=== PATIENT | female | born 1975 | race Caucasian/White ===

== ENCOUNTER 2017-06-01 00:12 | Observation (INO) | payer MEDICAID ==
[~2017-06-01] VITALS: Ht 162.6 cm; Wt 79.4 kg
[~2017-06-01 00:12] MED LIST: ACETTAB85 PO; CARI-277 PO; CITA10TA59 PO; CLON2TAB3 PO; DIC10C PO; GABA-497 PO; HYDR-2601 PO; MULTCAP45 PO; OMEP20CA74 PO; Pantoprazole Sodium Sesquihydr PO; SUCR1TAB38 PO; VAREPAK PO; ZOLP-158 PO
[2017-06-01 01:23] LABS: Basophils # (auto) 0 uL; Basophils % (auto) 0.4 % (0.0-2.0); CONDITION Y; Eosinophils # (auto) 0.2 uL; Eosinophils % (auto) 2.4 % (0.0-7.0); Hematocrit 41.2 % (36.0-46.0); Hemoglobin 13.9 g/dL (12.2-16.2); Lymphocytes # (auto) 1.9 uL; Mean Corpuscular Hemoglobin 31.4 pg (28.0-32.0); Mean Corpuscular Hgb Conc. 33.8 g/dL (32.0-36.0); Mean Corpuscular Volume 92.7 fL (80.0-100.0); Mean Platelet Volume 9.3 fL (7.4-10.4); Monocytes # (auto) 0.7 uL; Monocytes % (auto) 7.1 % (0.0-12.0); Neutrophils # (auto) 7.1 uL; Neutrophils % (auto) 71.1 % (37.0-80.0); Platelet Count (auto) 265 10^3/uL (140-450); Red Cell Distribution Width 12.9 % (11.6-16.0); White Blood Cell 10.1 10^3/uL (4.4-10.8)
[2017-06-01 01:41] LABS: INR 0.95 (0.9-1.15); Partial Thromboplastin Time 27.5 sec (22.64-33.71); Prothrombin Time 10.4 sec (9.37-12.3)
[2017-06-01 01:45] LABS: Albumin 3.9 g/dL (3.4-5.0); BUN/Creatinine Ratio 18.9; Calcium 8.3 mg/dL (8.5-10.1); Potassium 3.4 mmol/L (3.5-5.1)
[2017-06-01 01:46] LABS: Bilirubin, Total 0.4 mg/dL (0.2-1.0); Total Protein 7.5 g/dL (6.4-8.2)
[2017-06-01] MEDS ORDERED: SODIUM CHLORIDE 0.9% 1,000 ML IV ONE (08:05)
[2017-06-01] MEDS ORDERED: KETOROLAC TROMETH 30 MG/ML 1ML VIAL IV ONE (08:15)
[2017-06-01 10:17] LABS: Urine RBC None Seen /hpf (0 - 4)
[2017-06-01 10:27] LABS: Urine Bilirubin Negative (Negative); Urine Blood Negative /uL (Negative); Urine Color Yellow (Yellow); Urine Glucose Normal (Normal); Urine Ketone Negative (Negative); Urine Mucus FEW (None Seen); Urine Nitrite POSITIVE (Negative); Urine Squamous Epithelial Cell FEW /hpf (<5); Urine Urobilinogen Normal (Negative)
[2017-06-01 11:50] VITALS: BP 115/86
== END 2017-06-01 12:06 | disposition home or self-care (01) | DRG 53 ==
LOC: ER 00:12 → OVERFLOW 08:07 → ER 12:06
PROVIDERS: ADMIT Emergency Medicine; ATTEND Emergency Medicine
DX: G40.909 Epilepsy, unspecified, not intractable, without status epilepticus (principal); I10 Essential (primary) hypertension; M43.12 Spondylolisthesis, cervical region; F41.9 Anxiety disorder, unspecified; F17.210 Nicotine dependence, cigarettes, uncomplicated; F32.9 Major depressive disorder, single episode, unspecified; Z90.710 Acquired absence of both cervix and uterus; Z87.442 Personal history of urinary calculi; Z86.73 Personal history of transient ischemic attack (TIA), and cerebral infarction without residual deficits; Z82.49 Family history of ischemic heart disease and other diseases of the circulatory system
CPT/HCPCS: 36415; 70450; 72040; 80053; 81001; 85025; 85610; 85730; 96361; 96374; 99285; G0378; J1885; J7030

== ENCOUNTER 2017-11-12 21:43 | Emergency (ER) | payer MEDICAID ==
[~2017-11-12] VITALS: Ht 162.6 cm; Wt 86.2 kg
[~2017-11-12 21:43] MED LIST changes: -GABA-497 PO; +GABA300C10 PO
[2017-11-13 00:59] LABS: Albumin 3.6 g/dL (3.4-5.0); BUN/Creatinine Ratio 20.3; Calcium 8.2 mg/dL (8.5-10.1); Magnesium 1.9 mg/dL (1.6-2.6); Potassium 4.2 mmol/L (3.5-5.1)
[2017-11-13 01:01] LABS: Bilirubin, Total 0.1 mg/dL (0.2-1.0)
[2017-11-13 04:00] VITALS: BP 148/98
== END 2017-11-13 07:37 | disposition left against medical advice (07) ==
LOC: ER 21:43
DX: R07.9 Chest pain, unspecified (principal); R03.0 Elevated blood-pressure reading, without diagnosis of hypertension; Z53.21 Procedure and treatment not carried out due to patient leaving prior to being seen by health care provider
CPT/HCPCS: 36415; 80053; 83735; 84484; 93005

== ENCOUNTER 2018-09-18 12:29 | Emergency (ER) | payer MEDICAID ==
[~2018-09-18] VITALS: Ht 162.6 cm; Wt 90.7 kg
[~2018-09-18 12:29] MED LIST changes: +ACET-1603 PO; -ACETTAB85 PO; -CLON2TAB3 PO; +CLON2TAB6 PO
[2018-09-18] MEDS ORDERED: HYDROcodone-ACET 10/325MG TAB PO ONE (13:15)
[2018-09-18 13:34] LABS: Urine Bacteria FEW /hpf (None Seen); Urine Blood Negative /uL (Negative); Urine Mucus FEW (None Seen); Urine WBC <1 /hpf (0 - 5)
[2018-09-18 13:51] VITALS: BP 153/92
[2018-09-18 13:53] LABS: Albumin 3.9 g/dL (3.4-5.0); Calcium 8.5 mg/dL (8.5-10.1); Potassium 4.2 mmol/L (3.5-5.1)
[2018-09-18 13:58] LABS: BUN/Creatinine Ratio 16.9; Bilirubin, Total 0.3 mg/dL (0.2-1.0); Total Protein 7.3 g/dL (6.4-8.2)
[2018-09-18] MEDS ORDERED: ONDANSETRON ODT 4 MG TAB PO ONE (14:45)
== END 2018-09-18 14:53 | disposition home or self-care (01) ==
LOC: ER 12:29
DX: R51 Headache (principal); I10 Essential (primary) hypertension; F12.10 Cannabis abuse, uncomplicated; Z90.710 Acquired absence of both cervix and uterus; Z90.49 Acquired absence of other specified parts of digestive tract
CPT/HCPCS: 36415; 70450; 80053; 81001; 99285; Q0162

== ENCOUNTER 2019-05-16 13:26 | Emergency (ER) | payer MEDICAID ==
[~2019-05-16] VITALS: Ht 162.6 cm; Wt 97.5 kg
[2019-05-16 13:43] LABS: Urine WBC None Seen /hpf (0 - 5)
[2019-05-16 14:12] LABS: Urine Bacteria NONE SEEN /hpf (None Seen); Urine Blood Negative /uL (Negative); Urine Specific Gravity 1.002 (1.001-1.035)
[2019-05-16 15:34] LABS: Basophils # (auto) 0 uL; Basophils % (auto) 0.5 % (0.0-2.0); Eosinophils # (auto) 0.1 uL; Eosinophils % (auto) 1.7 % (0.0-7.0); Hematocrit 43.9 % (36.0-46.0); Hemoglobin 14.8 g/dL (12.2-16.2); Lymphocytes % (auto) 23.5 % (10.0-50.0); Mean Corpuscular Hemoglobin 32.1 pg (28.0-32.0); Mean Corpuscular Hgb Conc. 33.7 g/dL (32.0-36.0); Mean Corpuscular Volume 95.1 fL (80.0-100.0); Monocytes # (auto) 0.5 uL; Monocytes % (auto) 6.5 % (0.0-12.0); Neutrophils # (auto) 5.7 uL; Neutrophils % (auto) 67.8 % (37.0-80.0); Nucleated Red Blood Cells % 0.1 %; Platelet Count (auto) 190 10^3/uL (140-450); Red Blood Cells 4.61 10^6/uL (4.0-5.20); Red Cell Distribution Width 12.4 % (11.8-14.3); White Blood Cell 8.4 10^3/uL (4.4-10.8)
[2019-05-16 15:57] LABS: Albumin 4.2 g/dL (3.4-5.0); BUN/Creatinine Ratio 12.5; Bilirubin, Total 0.4 mg/dL (0.2-1.0); Calcium 9.3 mg/dL (8.5-10.1); Total Protein 7.4 g/dL (6.4-8.2)
[2019-05-16 23:10] VITALS: BP 149/98
[2019-05-16] MEDS: KETOROLAC TROMETH 60MG/2ML VIAL IM ONE (23:27)
[2019-05-16] MEDS: LACTULOSE 20Gm/30ML SOLN PO ONE (23:28)
[2019-05-16] MEDS: ONDANSETRON ODT 4 MG TAB PO ONE (23:28)
== END 2019-05-16 23:36 | disposition home or self-care (01) ==
LOC: ER 13:26
DX: K59.00 Constipation, unspecified (principal); R11.2 Nausea with vomiting, unspecified; I10 Essential (primary) hypertension; F12.10 Cannabis abuse, uncomplicated; Z90.49 Acquired absence of other specified parts of digestive tract; Z90.710 Acquired absence of both cervix and uterus; Z88.6 Allergy status to analgesic agent; Z79.899 Other long term (current) drug therapy
CPT/HCPCS: 36415; 74176; 80053; 81001; 82150; 83690; 85025; 96372; 99284; J1885; Q0162

== ENCOUNTER 2020-03-20 13:21 | Inpatient (IN) | payer MEDICAID ==
[~2020-03-20] VITALS: Ht 162.6 cm; Wt 98.2 kg
[~2020-03-20 13:21] MED LIST changes: +CLON-707 PO; -CLON2TAB6 PO; -DIC10C PO; +DICY10CA PO
[2020-03-20] MEDS ORDERED: ASPirin 81 mg TAB PO ONE (13:45)
[2020-03-20] MEDS ORDERED: cloNIDine HCL 0.1 MG TAB PO ONE (13:45)
[2020-03-20 14:19] LABS: Basophils # (auto) 0 10 ^3/uL (0-0.2); Basophils % (auto) 0.4 % (0.0-2.0); Eosinophils # (auto) 0.1 10 ^3/uL (0-0.8); Eosinophils % (auto) 1.9 % (0.0-7.0); Hematocrit 39.7 % (36.0-46.0); Hemoglobin 13.2 g/dL (12.2-16.2); Lymphocytes # (auto) 1.7 10 ^3/uL (0.4-5.4); Lymphocytes % (auto) 25.7 % (10.0-50.0); Mean Corpuscular Hemoglobin 31.3 pg (28.0-32.0); Mean Corpuscular Hgb Conc. 33.2 g/dL (32.0-36.0); Mean Corpuscular Volume 94.4 fL (80.0-100.0); Monocytes # (auto) 0.4 10 ^3/uL (0-1.3); Monocytes % (auto) 6.1 % (0.0-12.0); Neutrophils # (auto) 4.4 10 ^3/uL (1.6-8.6); Neutrophils % (auto) 65.9 % (37.0-80.0); Platelet Count (auto) 167 10^3/uL (140-450); Red Cell Distribution Width 13.1 % (11.8-14.3); White Blood Cell 6.7 10^3/uL (4.4-10.8)
[2020-03-20 14:39] LABS: Alanine Aminotransferase 23 U/L (13-56); Albumin 3.4 g/dL (3.4-5.0); Anion Gap 8 (5-15); Aspartate Aminotransferase 16 U/L (15-37); BUN/Creatinine Ratio 21.8; Blood Urea Nitrogen 12 mg/dL (7-18); Calcium 8.3 mg/dL (8.5-10.1); Carbon Dioxide 22 mmol/L (21-32); Chloride 111 mmol/L (98-107); GFR African American 154 mL/min; GFR Non-African American 127 mL/min; Glucose 102 mg/dL (74-106); Magnesium 1.9 mg/dL (1.6-2.6); Potassium 3.3 mmol/L (3.5-5.1); Sodium 141 mmol/L (136-145)
[2020-03-20 14:45] LABS: Alkaline Phosphatase 46 U/L (45-117); Bilirubin, Total 0.2 mg/dL (0.2-1.0); Total Protein 6.6 g/dL (6.4-8.2)
[2020-03-20] MEDS ORDERED: SODIUM CHLORIDE 0.9% 1,000 ML IV SCH (14:59)
[2020-03-20] MEDS ORDERED: MORPHINE SULFATE 4 MG/ML SYR/VIAL IV PRN (15:00)
[2020-03-20] MEDS ORDERED: LORazepam 0.5 MG TAB PO PRN (15:00)
[2020-03-20] MEDS ORDERED: ACETAMINOPHEN 325 MG TAB PO PRN (15:00)
[2020-03-20] MEDS ORDERED: NITROGLYCERIN 0.4 MG SL TAB SL PRN ×2 (15:00)
[2020-03-20] MEDS ORDERED: ALUM & MAG HYDROX-SIMETH LIQ(MAALOX) 30 ML PO ONE (15:00)
[2020-03-20] MEDS ORDERED: ZOLPIDEM TARTRATE 5 MG TAB PO PRN (15:00)
[2020-03-20] MEDS ORDERED: POTASSIUM CHL 20 Meq TABLET PO ONE (15:30)
[2020-03-20] MEDS: ONDANSETRON HCL 4 MG/2 ML VIAL IV PRN (15:41)
[2020-03-20] MEDS: MORPHINE SULF INJ 2 MG/ML SYRINGE 1ML IV PRN ×2 (15:41→21:18)
[2020-03-20] MEDS ORDERED: HYDROcodone-ACET 7.5/325MG TAB PO PRN (15:45)
[2020-03-20] MEDS ORDERED: MAGNESIUM OXIDE 400 MG TAB PO ONE (16:00)
[2020-03-20] MEDS: SUCRALFATE 1 GM TAB PO SCH ×2 (18:24→22:34)
[2020-03-20 19:37] VITALS: BP 123/78
[2020-03-20 21:31] VITALS: BP 109/69
[2020-03-20] MEDS ORDERED: ATORVASTATIN 20 MG TAB PO SCH (22:00)
[2020-03-20] MEDS ORDERED: HYDROcodone-ACET 7.5/325MG TAB PO SCH (22:00)
[2020-03-20] MEDS ORDERED: CARISOPRODOL 350 MG TAB PO SCH (22:00)
[2020-03-20] MEDS: METOPROLOL TARTRATE 25 MG TAB PO SCH (22:33)
[2020-03-20] MEDS: PANTOPRAZOLE 40 MG TAB PO SCH (22:34)
[2020-03-20] MEDS: GABAPENTIN 300 MG CAP PO SCH (22:34)
[2020-03-20] MEDS: DICYCLOMINE HCL 10 MG CAP PO SCH (22:34)
[2020-03-20] MEDS ORDERED: ALBUTEROL SULF 2.5 MG/0.5ML(0.5%) NEB SOLN NEB PRN (22:45)
[2020-03-20] MEDS ORDERED: CALCIUM W/VIT D (600MG/400IU) TAB PO ONE (23:15)
[2020-03-21] MEDS ORDERED: BECL80AE11 IN (01:57)
[2020-03-21] MEDS ORDERED: CHOL20007 OR (01:57)
[2020-03-21] MEDS ORDERED: ONDA-144 PO (01:57)
[2020-03-21] MEDS ORDERED: TOPI100T29 PO (01:57)
[2020-03-21] MEDS ORDERED: CYCL1TAB18 PO (01:57)
[2020-03-21] MEDS ORDERED: PANT40TA2 PO (01:58)
[2020-03-21] MEDS: MORPHINE SULF INJ 2 MG/ML SYRINGE 1ML IV PRN (03:54)
[2020-03-21] MEDS: ONDANSETRON HCL 4 MG/2 ML VIAL IV PRN (03:54)
[2020-03-21 05:00] VITALS: BP 106/73
[2020-03-21] MEDS: DICYCLOMINE HCL 10 MG CAP PO SCH (05:47)
[2020-03-21] MEDS: SUCRALFATE 1 GM TAB PO SCH ×2 (05:47→11:58)
[2020-03-21 05:53] LABS: Basophils # (auto) 0 10 ^3/uL (0-0.2); Basophils % (auto) 0.4 % (0.0-2.0); Eosinophils # (auto) 0.1 10 ^3/uL (0-0.8); Eosinophils % (auto) 2.4 % (0.0-7.0); Hematocrit 38.2 % (36.0-46.0); Hemoglobin 13.2 g/dL (12.2-16.2); Lymphocytes # (auto) 1.6 10 ^3/uL (0.4-5.4); Lymphocytes % (auto) 28.4 % (10.0-50.0); Mean Corpuscular Hemoglobin 32.7 pg (28.0-32.0); Mean Corpuscular Hgb Conc. 34.6 g/dL (32.0-36.0); Mean Corpuscular Volume 94.6 fL (80.0-100.0); Monocytes # (auto) 0.4 10 ^3/uL (0-1.3); Monocytes % (auto) 7.3 % (0.0-12.0); Neutrophils # (auto) 3.5 10 ^3/uL (1.6-8.6); Neutrophils % (auto) 61.5 % (37.0-80.0); Nucleated Red Blood Cells % 0.1 %; Platelet Count (auto) 153 10^3/uL (140-450); Red Blood Cells 4.04 10^6/uL (4.0-5.20); Red Cell Distribution Width 12.6 % (11.8-14.3); White Blood Cell 5.6 10^3/uL (4.4-10.8)
[2020-03-21 06:05] LABS: Partial Thromboplastin Time 26.1 sec (23.64-32.05)
[2020-03-21 06:09] LABS: Potassium 4.1 mmol/L (3.5-5.1)
[2020-03-21 06:14] LABS: Albumin 3.2 g/dL (3.4-5.0); BUN/Creatinine Ratio 18.2; Bilirubin, Total 0.4 mg/dL (0.2-1.0); Calcium 8.8 mg/dL (8.5-10.1); Magnesium 2.3 mg/dL (1.6-2.6); Phosphorus 3.2 mg/dL (2.5-4.90)
[2020-03-21] MEDS ORDERED: CALCIUM W/VIT D (600MG/400IU) TAB PO SCH (08:00)
[2020-03-21] MEDS ORDERED: ADENOSINE 82 MG in GIVE UN-DILUTED 0 ML IV STA (08:18)
[2020-03-21 09:00] VITALS: BP 106/75
[2020-03-21] MEDS ORDERED: LISINOPRIL 10 MG TAB PO SCH (10:00)
[2020-03-21] MEDS: METOPROLOL TARTRATE 25 MG TAB PO SCH (10:00)
[2020-03-21] MEDS ORDERED: ASPirin 81 mg TAB PO SCH (10:00)
[2020-03-21] MEDS ORDERED: DOCUSATE SOD 100 MG CAP PO SCH (10:00)
[2020-03-21] MEDS ORDERED: NICOTINE 14 MG/24HR TOPICAL PATCH TD SCH (10:00)
[2020-03-21] MEDS ORDERED: ENOXAPARIN SOD 60 MG/0.6 ML SYRINGE SC SCH (10:00)
[2020-03-21] MEDS: GABAPENTIN 300 MG CAP PO SCH (10:26)
[2020-03-21] MEDS: PANTOPRAZOLE 40 MG TAB PO SCH (10:27)
[2020-03-21] MEDS ORDERED: KETOROLAC TROMETH 30 MG/ML 1ML VIAL IV ONE (11:45)
[2020-03-21] MEDS ORDERED: diphenhdrAMINE HCL 25 MG CAP PO PRN (12:30)
[2020-03-21 14:00] VITALS: BP 113/83
== END 2020-03-21 14:10 | disposition home or self-care (01) | DRG 198 ==
LOC: ER 13:21 → TELE 13:22 → TELE-CENTR 19:35
PROVIDERS: ADMIT Hospitalist; ATTEND Internal Medicine
DX: I25.10 Atherosclerotic heart disease of native coronary artery without angina pectoris (principal); N17.9 Acute kidney failure, unspecified; I24.9 Acute ischemic heart disease, unspecified; N18.3 Chronic kidney disease, stage 3 (moderate); R07.89 Other chest pain; E83.51 Hypocalcemia; K58.9 Irritable bowel syndrome, unspecified; E66.9 Obesity, unspecified; F17.210 Nicotine dependence, cigarettes, uncomplicated; F32.9 Major depressive disorder, single episode, unspecified; F41.1 Generalized anxiety disorder; G40.909 Epilepsy, unspecified, not intractable, without status epilepticus; F12.10 Cannabis abuse, uncomplicated; G47.00 Insomnia, unspecified; G89.29 Other chronic pain; I12.9 Hypertensive chronic kidney disease with stage 1 through stage 4 chronic kidney disease, or unspecified chronic kidney disease; Z79.82 Long term (current) use of aspirin; Z79.899 Other long term (current) drug therapy; Z68.37 Body mass index [BMI] 37.0-37.9, adult; Z80.3 Family history of malignant neoplasm of breast; Z82.3 Family history of stroke; Z82.49 Family history of ischemic heart disease and other diseases of the circulatory system; Z86.73 Personal history of transient ischemic attack (TIA), and cerebral infarction without residual deficits; Z90.49 Acquired absence of other specified parts of digestive tract; Z83.3 Family history of diabetes mellitus; Z90.710 Acquired absence of both cervix and uterus; Z88.6 Allergy status to analgesic agent
CPT/HCPCS: 36415; 71045; 78452; 80053; 83036; 83735; 84100; 84484; 84702; 85025; 85379; 85610; 85730; 93005; 93017; 93306; 96361; 96374; G0378; J0153; J1885; J2405

== ENCOUNTER 2021-04-22 23:40 | Emergency (ER) | payer MEDICAID ==
[~2021-04-22] VITALS: Ht 162.6 cm; Wt 86.2 kg
[~2021-04-22 23:40] MED LIST changes: -ACET-1603 PO; +BECL80AE11 IN; +CHOL20007 OR; -CITA10TA59 PO; -CLON-707 PO; +CYCL-839 PO; -GABA300C10 PO; -HYDR-2601 PO; -MULTCAP45 PO; -OMEP20CA74 PO; +ONDA-144 PO; +PANT40TA2 PO; -Pantoprazole Sodium Sesquihydr PO; +SUCR1TAB22 PO; -SUCR1TAB38 PO; +TOPI100T29 PO; -ZOLP-158 PO; +ZOLP5TAB PO
[2021-04-23 00:52] LABS: Urine Bacteria FEW /hpf (None Seen); Urine Blood Negative /uL (Negative); Urine Specific Gravity 1.004 (1.001-1.035); Urine WBC 3 /hpf (0 - 5)
[2021-04-23 01:26] LABS: Basophils # (auto) 0.1 10 ^3/uL (0-0.2); Basophils % (auto) 0.8 % (0.0-2.0); Eosinophils # (auto) 0.2 10 ^3/uL (0-0.8); Eosinophils % (auto) 2.8 % (0.0-7.0); Hematocrit 40.5 % (36.0-46.0); Hemoglobin 13.8 g/dL (12.2-16.2); Lymphocytes % (auto) 31.1 % (10.0-50.0); Mean Corpuscular Hemoglobin 32.7 pg (28.0-32.0); Mean Corpuscular Hgb Conc. 34.1 g/dL (32.0-36.0); Mean Corpuscular Volume 95.9 fL (80.0-100.0); Monocytes # (auto) 0.5 10 ^3/uL (0-1.3); Monocytes % (auto) 6.9 % (0.0-12.0); Neutrophils # (auto) 3.8 10 ^3/uL (1.6-8.6); Neutrophils % (auto) 58.4 % (37.0-80.0); Red Blood Cells 4.23 10^6/uL (4.0-5.20); Red Cell Distribution Width 13.1 % (11.8-14.3); White Blood Cell 6.6 10^3/uL (4.4-10.8)
[2021-04-23 01:46] LABS: Calcium 8.7 mg/dL (8.5-10.1); Potassium 3.4 mmol/L (3.5-5.1)
[2021-04-23 01:48] LABS: BUN/Creatinine Ratio 14.3
[2021-04-23] MEDS ORDERED: ONDANSETRON HCL 4 MG/2 ML VIAL IV ONE (07:00)
[2021-04-23] MEDS ORDERED: KETOROLAC TROMETH 30 MG/ML 1ML VIAL IV ONE (07:00)
[2021-04-23] MEDS ORDERED: ONDANSETRON HCL 8 MG in D5W 5% 50 ML IV ONE (07:15)
[2021-04-23 08:00] VITALS: BP 146/73
== END 2021-04-23 08:15 | disposition home or self-care (01) ==
LOC: ER 23:40
DX: N20.0 Calculus of kidney (principal); R19.7 Diarrhea, unspecified; I10 Essential (primary) hypertension; Z87.440 Personal history of urinary (tract) infections; Z87.442 Personal history of urinary calculi; Z87.11 Personal history of peptic ulcer disease; Z86.73 Personal history of transient ischemic attack (TIA), and cerebral infarction without residual deficits; Z90.49 Acquired absence of other specified parts of digestive tract; Z90.710 Acquired absence of both cervix and uterus; Z98.84 Bariatric surgery status; Z79.899 Other long term (current) drug therapy
CPT/HCPCS: 36415; 74176; 80048; 81001; 85025; 96365; 96375; 99284; J1885; J2405; J7060